=== PATIENT | female | born 1940 | race Caucasian/White ===

== ENCOUNTER 2016-11-16 00:15 | Emergency (ER) | payer OTHER ==
[2016-11-16] MEDS ORDERED: SODIUM CHLORIDE 0.9% (FLUSH) 10 ML SYG IV PRN (00:21)
[2016-11-16] MEDS ORDERED: ASPIRIN TABLET 325 MG TAB PO ONE (00:21)
[2016-11-16] MEDS ORDERED: ONDANSETRON INJ 4 MG/2 ML VIAL IV ONE (00:21)
[2016-11-16] MEDS ORDERED: NITROGLYCERIN 0.4 MG 25 EA TAB SL ONE (00:21)
[2016-11-16] MEDS ORDERED: SODIUM CHLORIDE 0.9% 100ML 100 ML IVPB ONE (00:33)
[2016-11-16] MEDS ORDERED: diltiaZEM DRIP 125 MG/25 ML VIAL IVPB ONE (00:34)
--- NOTE | 2016-11-16 00:44 | RAD ---
EXAM DESCRIPTION: X-RAY CHEST- One View CLINICAL HISTORY: Chest pain COMPARISON: None TECHNIQUE: Single view of the chest. FINDINGS: There are no discrete air space infiltrates, pneumothoraces or pleural effusions. The pulmonary vascularity is normal. The cardiomediastinal silhouette is unremarkable. IMPRESSION: There are no acute lung parenchymal findings. Electronically signed by: Arthur Aburto MD 11/16/2016 00:41
[2016-11-16] MEDS: ADENOSINE INJ 6 MG/2 ML SYG IV ONE (00:56)
[2016-11-16] MEDS ORDERED: diltiaZEM DRIP 125 MG in SODIUM CHLORIDE 0.9% 100ML 100 ML IVPB SCH (01:00)
--- NOTE | 2016-11-16 01:04 | ED.PDOC ---
History of Present Illness - General Chief Complaint: Cardiovascular Problem Stated Complaint: chest pressure Time Seen by Provider: 11/16/16 00:19 Source: patient Exam Limitations: no limitations - History of Present Illness Initial Comments: Patient stated she woke up from her sleep tonight when she sudden onset of chest pressure traveled to her chin,denies sob,chest pain n/v,diaphoreses. Timing/Duration: 1 hour Severity: moderate Location: central Activities at Onset: sleep Prior Chest Pain/Cardiac Workup: no prior chest pain, no prior cardiac workup Improving Factors: nothing Worsening Factors: nothing Nitro Today/Relief: no nitro taken today Aspirin Treatment Today: no aspirin today Associated Symptoms: denies symptoms Allergies/Adverse Reactions: Allergies NO KNOWN ALLERGY Allergy (Verified 11/16/16 00:20) Review of Systems - Review of Systems Constitutional: States: no symptoms reported EENTM: States: no symptoms reported Respiratory: States: no symptoms reported Cardiology: States: see HPI Gastrointestinal/Abdominal: States: no symptoms reported Genitourinary: States: no symptoms reported Musculoskeletal: States: no symptoms reported Skin: States: no symptoms reported Neurological: States: no symptoms reported Endocrine: States: no symptoms reported Hematologic/Lymphatic: States: no symptoms reported Past Medical History (General) - Patient Medical History Hx Hypertension: Yes Surgical History: other - ,left knee and ankle - Social History Hx Tobacco Use: No Hx Alcohol Use: No Hx Substance Use: No - Activities of Daily Living Patient Lives Alone: No - lives at home with Family Medical History - Family History Mother Living Status: Still Living Hx Family Hypertension: Yes Hx Family;Other: father had sudden cause unknown Physical Exam - Physical Exam General Appearance: Alert, Anxious, No apparent distress Eyes, Ears, Nose, Throat Exam: PERRL/EOMI, normal ENT inspection, TMs normal Neck: non-tender, full range of motion, supple, normal inspection, other - no thyromegaly Respiratory: chest non-tender, lungs clear, normal breath sounds Cardiovascular/Chest: normal peripheral pulses, no edema, no gallop, no murmur, tachycardia Gastrointestinal/Abdominal: normal bowel sounds, non tender, soft Extremity: normal range of motion, non-tender Neurologic: no motor/sensory deficits, alert, oriented x 3 Skin Exam: normal color, warm/dry, cyanosis Progress - Progress Progress: 11/16/16 02:40 D/W family ekg,blood works and diagnosis and agreed transfer to [facility]-patients choice - Results/Orders Results/Orders: 11/16/16 00:21 IV Care:Saline Lock per Protoc QSHIFT Telemetry .ONCE Sodium Chloride 0.9% (Flush) [Saline Flush Syringe] 10 ml IV PRN PRN EKG Stat Pulse Ox Stat Pulse Oximetry Assessment DAILY 11/16/16 01:00 [id number] DRIP [Cardizem Drip] 125 mg Sodium Chloride 0.9% 100Ml [NS (NACL 0.9 %) 100ml] 100 ml IVPB PRN Laboratory Results WBC 12.2 K/mm3 (4.8-10.8) H 11/16/16 00:20 RBC 4.65 M/mm3 (4.20-5.40) 11/16/16 00:20 Hgb 14.5 gm/dL (12.0-16.0) 11/16/16 00:20 Hct 43.1 % (36.0-47.0) 11/16/16 00:20 MCV 92.7 fl (81.0-99.0) 11/16/16 00:20 MCH 31.2 pg (27.0-31.0) H 11/16/16 00:20 MCHC 33.6 g/dL (33.0-37.0) 11/16/16 00:20 RDW 12.5 % (11.5-14.5) 11/16/16 00:20 Plt Count 303 K/mm3 (130-400) 11/16/16 00:20 MPV 7.4 fl (7.40-10.4) 11/16/16 00:20 Absolute Neuts (auto) 5.40 K/uL (1.8-6.8) 11/16/16 00:20 Absolute Lymphs (auto) 5.50 K/uL (1.0-3.4) H 11/16/16 00:20 Absolute Monos (auto) 0.80 K/uL (0.2-0.8) 11/16/16 00:20 Absolute Eos (auto) 0.30 K/uL (0.0-0.4) 11/16/16 00:20 Absolute Basos (auto) 0.10 K/uL (0.0-0.1) 11/16/16 00:20 Neutrophils % 44.8 % (42.0-78.0) 11/16/16 00:20 Lymphocytes % 45.5 % (20.0-50.0) 11/16/16 00:20 Monocytes % 6.4 % (2.0-9.0) 11/16/16 00:20 Eosinophils % 2.4 % (1.0-5.0) 11/16/16 00:20 Basophils % 0.9 % (0.0-2.0) 11/16/16 00:20 PT 10.7 SECONDS (9.4-12.5) 11/16/16 00:20 INR 0.940 11/16/16 00:20 PTT (SP) 33.1 SECONDS (25.1-36.5) 11/16/16 00:20 Sodium 136 mmol/L (135-145) 11/16/16 00:20 Potassium 3.5 mmol/L (3.6-5.0) L 11/16/16 00:20 Chloride 102 mmol/L (101-111) 11/16/16 00:20 Carbon Dioxide 26 mmol/L (21-31) 11/16/16 00:20 Anion Gap 11.5 (12-18) L 11/16/16 00:20 BUN 11 mg/dL (7-18) 11/16/16 00:20 Creatinine 0.66 mg/dL (0.6-1.3) 11/16/16 00:20 BUN/Creatinine Ratio 16.7 (10-20) 11/16/16 00:20 Random Glucose 134 mg/dL (70-105) H 11/16/16 00:20 Serum Osmolality 273.3 mOsm/L (275-295) L 11/16/16 00:20 Calcium 9.6 mg/dL (8.4-10.2) 11/16/16 00:20 Magnesium 2.1 mg/dL (1.8-2.5) 11/16/16 00:20 Creatine Kinase 122 IU/L (26-140) 11/16/16 00:20 CK-MB (CK-2) 2.8 ng/mL (0.0-4.4) 11/16/16 00:20 CK-MB (CK-2) % Not Reportable 11/16/16 00:20 Troponin I < 0.02 ng/mL (0.01-0.05) 11/16/16 00:20 B-Natriuretic Peptide 58.7 pg/ml (0-100) 11/16/16 00:20 TSH 7.72 uIU/mL (0.34-5.60) H 11/16/16 00:20 - EKG/XRAY/CT EKG: Atrial, Fibrillation - with rapid ventricular rate hr i60 XRAY: chest - no acute abnormality Departure - Departure Clinical Impression: Atrial fibrillation with rapid ventricular response Hypertension Qualifiers: Qualifier Code: (I10) Essential (primary) hypertension Time of Disposition: 02:39 - D/W Dr.Ruiz-[facility] Disposition: Transfer to Hospital Condition: Fair Departure Forms: ED Discharge - Pt. Copy, Patient Portal Self Enrollment Referrals: Aashish Patel MD [Primary Care Provider] - 1-2 Weeks
[2016-11-16] MEDS ORDERED: METOPROLOL SUCCINATE XL 25 MG TAB PO ONE (02:35)
[2016-11-16 02:47] VITALS: TEMP 98.2; O2SAT 95
[2016-11-16 03:41] VITALS: BP 144/79
== END 2016-11-16 03:15 | disposition short-term general hospital (02) ==
LOC: ER 00:15
DX: I48.91 Unspecified atrial fibrillation (principal); I10 Essential (primary) hypertension

== ENCOUNTER 2020-09-15 19:43 | Emergency (ER) | payer OTHER ==
[2020-09-15] MEDS ORDERED: MORPHINE SULFATE INJ 10 MG/ML VIAL IV ONE (20:00)
[2020-09-15] MEDS ORDERED: ONDANSETRON INJ 4 MG/2 ML VIAL IV ONE (20:00)
--- NOTE | 2020-09-15 20:03 | ED.PDOC ---
History of Present Illness - General Time Seen by Provider: 09/15/20 19:58 Information Source: patient, RN notes reviewed, Vital Signs reviewed Additional Information: 79-year-old female, presents to the ER with epigastric pain, patient woke up this morning with the pain and it got progressively worse throughout the day. Patient went to see her primary care physician, she was told that she had gastritis and she was told to go home, but the pain got worse, patient did have a gallbladder patient was uncomfortable denies any nausea vomiting diarrhea denies any dysuria This patient used to be on Nexium for years but she decided to stop taking it because she did not think she needed it anymore - History of Present Illness Abdominal Pain Onset Location: epigastric Quality: moderate Timing/Duration: other - since this morning Improving Factors: nothing Worsening Factors: nothing Associated Symptoms: denies symptoms Review of Systems - Review of Systems Constitutional: States: no symptoms reported EENTM: States: no symptoms reported Respiratory: States: no symptoms reported Cardiology: States: no symptoms reported Gastrointestinal/Abdominal: States: abdominal pain Genitourinary: States: no symptoms reported Musculoskeletal: States: no symptoms reported Skin: States: no symptoms reported Endocrine: States: no symptoms reported Hematologic/Lymphatic: States: no symptoms reported Past Medical History (General) - Patient Medical History Hx Seizures: No Hx Stroke: No Hx Dementia: No Hx Asthma: No Hx of COPD: No Hx Cardiac Disorders: No Hx Congestive Heart Failure: No Hx Pacemaker: No Hx Hypertension: Yes Hx Thyroid Disease: No Hx Diabetes: No Hx Gastroesophageal Reflux: No Hx Renal Disease: No Hx Cancer: No Hx of HIV: No Hx Hepatitis C: No Hx MRSA: No - Vaccination History Hx Tetanus, Diphtheria Vaccination: No Hx Influenza Vaccination: Yes Hx Pneumococcal Vaccination: Yes - Social History Hx Tobacco Use: No Hx Chewing Tobacco Use: No Hx Alcohol Use: No Hx Substance Use: No Hx Physical Abuse: No Hx Emotional Abuse: No Hx Suspected Abuse: No - Female History Patient : No Family Medical History - Family History Mother Living Status: Still Living Hx Family Hypertension: Yes Hx Family;Other: father had sudden cause unknown Physical Exam - Physical Exam General Appearance: Alert, Well Developed, Well Groomed, Well Hydrated, Well Nourished Eyes, Ears, Nose, Throat Exam: PERRL/EOMI, normal ENT inspection Neck: non-tender, full range of motion, supple Respiratory: chest non-tender, lungs clear, normal breath sounds, no respiratory distress, no accessory muscle use Cardiovascular/Chest: normal peripheral pulses, regular rate, rhythm, no edema, no gallop, no JVD, no murmur Gastrointestinal/Abdominal: tenderness - epigastric no guarding no distention no acute abdomen Pelvic Exam: normal external exam Back Exam: normal inspection, no CVA tenderness, no vertebral tenderness Extremity: normal range of motion, non-tender, normal inspection, no pedal edema, no calf tenderness, normal capillary refill Neurologic: take away man II-XII nml as tested, no motor/sensory deficits, alert, normal mood/affect, oriented x 3 Skin Exam: normal color Lymphatic: no adenopathy Progress - Progress Progress: Patient will be able to make midepigastric and right upper quadrant pain, patient said that she does have a history of reflux, and she has stopped taking her Nexium because she needs any more Lithiasis, start ordering ultrasound basic lab work I gave the patient. Patient ultrasound did show evidence of cholelithiasis with diabetes of fibrocystic fluid or cholecystitis, patient lipase was within normal limits normal bilirubin patient did have some evidence of leukocytosis but no evidence of right lower quadrant pain, patient returned home with tramadol for pain and instructions to follow-up with general surgeon for evaluation of cholelithiasis. To the ER immediately if there is any severe right lower quadrant pain back pain diarrhea bloody stools unwanted weight of decreased oral intake unable to monitor fluids down blood in the urine blood in the stools patient needs to av oid eating will be high fat content 09/15/20 21:41 Departure - Departure Clinical Impression: Cholelithiasis Qualifiers: Cholelithiasis location: gallbladder Cholecystitis presence: without cholecystitis Biliary obstruction: without biliary obstruction Qualified Code(s): K80.20 - Calculus of gallbladder without cholecystitis without obstruction Disposition: Discharge to Home or Self Care Condition: Fair Diet: full liquid diet, other - avoid food with High fat content Referrals: Aashish Patel MD [Primary Care Provider] - 1-2 Weeks Gerard Moe MD [Active Staff] - 1-2 Weeks Aashish Chester MD [Active Staff] - 1-2 Weeks Prescriptions: Tramadol HCl 50 mg PO Q6HR #20 tab Home Medications: Ambulatory Orders Aspirin [Aspirin Adult Low Dose] 81 mg PO DAILY 12/04/19 B-Complex Vitamins [Vitamin B Complex] 1 tab PO DAILY 12/04/19 Beet Root 1 tablet PO DAILY 12/04/19 Garlic 1 tablet PO DAILY 12/04/19 [place]-3 Fatty Acids [Fish Oil] 1 cap PO DAILY 12/04/19 Telmisartan [Micardis] 40 mg PO DAILY 12/04/19 Vitamin D 1 tablet PO DAILY 12/04/19 Tramadol HCl 50 mg PO Q6HR #20 tab 09/15/20 Additional Instructions: To the ER immediately if there is any severe right lower quadrant pain back pain diarrhea bloody stools unwanted weight of decreased oral intake unable to monitor fluids down blood in the urine blood in the stools patient needs to avoid eating will be high fat content
--- NOTE | 2020-09-15 21:18 | US ---
EXAM DESCRIPTION: US Abdomen Limited CLINICAL HISTORY: right upper quadrant pain TECHNIQUE: Real-time and davila scale sonographic imaging of the right upper quadrant was performed. COMPARISON: None available for comparison FINDINGS: Liver: 15.7 cm. Normal in echotexture. No focal mass. Gallbladder: Gallstones within a distended gallbladder. No gallbladder wall thickening or pericholecystic fluid. histotechnologist supervisor noted a sonographic positive Turner's. Common bile duct: 5 mm in diameter. There is no intrahepatic biliary ductal dilatation. Pancreas: Unremarkable as visualized Right kidney: 9.2 x 4 x 5.4 cm. No focal mass, calculus or hydronephrosis. IVC: Unremarkable as visualized Free fluid: None IMPRESSION: Cholelithiasis. The gallbladder is distended. No gallbladder wall thickening or pericholecystic fluid. histotechnologist supervisor noted a sonographic positive Turner's sign. Electronically signed by: Migue Carroll MD 09/15/2020 9:17 PM ADVERTISING MANAGER
[2020-09-15 22:19] VITALS: O2SAT 96
[2020-09-15 22:21] VITALS: BP 162/83; TEMP 97.5
== END 2020-09-15 22:03 | disposition home or self-care (01) ==
LOC: ER 19:43
DX: K80.20 Calculus of gallbladder without cholecystitis without obstruction (principal); I10 Essential (primary) hypertension
CPT/HCPCS: 36415; 76775; 80053; 84484; 85025; 93005; J2270; J2405

== ENCOUNTER 2020-09-16 19:41 | Observation (INO) | payer OTHER ==
[~2020-09-16 19:41] MED LIST: DEXAMETHASONE INJ 10 MG/ML VIAL IV ONE; LIDOCAINE 1% 10 ML VIAL INJ ONE; MAGNESIUM SULFATE INJ 1 GM/2 ML VIAL IVPB ONE; METOCLOPRAMIDE HCL INJ 10 MG/2 ML VIAL IV ONE; PROPOFOL 200 MG/20 ML VIAL IV ONE; SODIUM CHLORIDE 0.9% 50 ML VIAL INJ ONE
[2020-09-16] MEDS ORDERED: ONDANSETRON INJ 4 MG/2 ML VIAL IV ONE (19:56)
[2020-09-16] MEDS ORDERED: fentaNYL CITRATE INJ 50 MCG/ML 2 ML AMP IV ONE (19:56)
--- NOTE | 2020-09-16 20:04 | ED.PDOC ---
History of Present Illness - General Chief Complaint: Abdominal Pain Time Seen by Provider: 09/16/20 19:46 Information Source: patient, RN notes reviewed, Vital Signs reviewed Exam Limitations: no limitations - History of Present Illness Initial Comments: 79 yo F comes in with worsening abdominal pain. One day ago started have upper abdominal pain associated with n/v. had a RUQ US which showed gallstones without gbw thickening or cbd dilation. She was schedule to see surgery in 3 days, but pain got significantly worse so came in for evaluation. + N/V. no diarrhea. no fevers. no cp, sob. last ate 3 PM, 4 wheat crackers. Review of Systems - Review of Systems Constitutional: Denies: chills, fever EENTM: Denies: blurred vision, ear discharge, mouth swelling Respiratory: Denies: cough, short of breath Cardiology: Denies: chest pain, palpitations Gastrointestinal/Abdominal: States: abdominal pain, nausea, vomiting. Denies: diarrhea Genitourinary: Denies: frequency, hematuria Musculoskeletal: Denies: back pain, joint swelling, muscle stiffness Neurological: Denies: headache, numbness, paresthesia Endocrine: Denies: unexplained weight gain, unexplained weight loss Hematologic/Lymphatic: Denies: blood clots, easy bleeding, easy bruising Past Medical History (General) - Patient Medical History Hx Seizures: No Hx Stroke: No Hx Dementia: No Hx Asthma: No Hx of COPD: No Hx Cardiac Disorders: No Hx Congestive Heart Failure: No Hx Pacemaker: No Hx Hypertension: Yes Hx Thyroid Disease: No Hx Diabetes: No Hx Gastroesophageal Reflux: No Hx Renal Disease: No Hx Cancer: No Hx of HIV: No Hx Hepatitis C: No Hx MRSA: No - Vaccination History Hx Tetanus, Diphtheria Vaccination: No Hx Influenza Vaccination: Yes Hx Pneumococcal Vaccination: Yes - Social History Hx Tobacco Use: No Hx Chewing Tobacco Use: No Hx Alcohol Use: No Hx Substance Use: No Hx Depression: No Hx Physical Abuse: No Hx Emotional Abuse: No Hx Suspected Abuse: No - Female History Patient : No Family Medical History - Family History Mother Living Status: Still Living Hx Family Hypertension: Yes Hx Family;Other: father had sudden cause unknown Physical Exam - Physical Exam General Appearance: Alert, Comfortable, No apparent distress, Well Developed, Well Groomed, Well Hydrated, Well Nourished Eyes, Ears, Nose, Throat Exam: PERRL/EOMI, normal ENT inspection, TMs normal Neck: non-tender, full range of motion, supple, normal inspection Respiratory: chest non-tender, lungs clear, normal breath sounds, no respiratory distress, no accessory muscle use Cardiovascular/Chest: normal peripheral pulses, regular rate, rhythm, no edema, no gallop, no JVD, no murmur Peripheral Pulses: 2+ Gastrointestinal/Abdominal: normal bowel sounds, soft, no organomegaly, other - + muprhys, vol gaurding. Rectal Exam: deferred Back Exam: normal inspection, no CVA tenderness, no vertebral tenderness Extremity: normal range of motion, non-tender, normal inspection, no pedal edema, no calf tenderness, normal capillary refill Neurologic: police surgeon II-XII nml as tested, no motor/sensory deficits, alert, normal mood/affect, oriented x 3 Skin Exam: normal color, warm/dry Progress - Progress Progress: 09/16/20 21:51 bedside US shows GBW thickening. The data reviewed when caring for this patient included: nurse notes, prior records, etc. The history and assessments from nurses notes were reviewed and considered, and the patient's home medication list was also reviewed and considered. My assessment and the results of testing completed here in the ED were discussed with the patient/family. All questions were answered, and they express understanding of my assessment and the plan. patient received fentanyl, toradol, flagyl and ceftriaxone. Zofran for nausea. Pain improved. NPO. accepted for admission. Florina Beasley DO #[id number] - Results/Orders Results/Orders: 09/16/20 20:00 Hold Metformin x 48Hrs [id number] 09/16/20 20:43 BLOOD CULTURE Stat 09/16/20 21:00 EKG STAT 09/16/20 21:31 UA [URINALYSIS] Stat Laboratory Results WBC 16.6 K/mm3 (4.8-10.8) H 09/16/20 20:17 RBC 4.04 M/mm3 (4.20-5.40) L 09/16/20 20:17 Hgb 12.6 gm/dL (12.0-16.0) 09/16/20 20:17 Hct 37.0 % (36.0-47.0) 09/16/20 20:17 MCV 91.6 fl (81.0-99.0) 09/16/20 20:17 MCH 31.3 pg (27.0-31.0) H 09/16/20 20:17 MCHC 34.2 g/dL (33.0-37.0) 09/16/20 20:17 RDW 12.2 % (11.5-14.5) 09/16/20 20:17 Plt Count 292 K/mm3 (130-400) 09/16/20 20: MPV 7.0 fl (7.40-10.4) L 09/16/20 20:17 Absolute Neuts (auto) 12.80 K/uL (1.8-6.8) H 09/16/20 20: Absolute Lymphs (auto) 1.90 K/uL (1.0-3.4) 09/16/20 20: Absolute Monos (auto) 1.70 K/uL (0.2-0.8) H 09/16/20 20:17 Absolute Eos (auto) 0.10 K/uL (0.0-0.4) 09/16/20 20: Absolute Basos (auto) 0.10 K/uL (0.0-0.1) 09/16/20 20:17 Neutrophils % 77.2 % (42.0-78.0) 09/16/20 20: Lymphocytes % 11.2 % (20.0-50.0) L 09/16/20 20: Monocytes % 10.0 % (2.0-9.0) H 09/16/20 20: Eosinophils % 0.8 % (1.0-5.0) L 09/16/20 20: Basophils % 0.8 % (0.0-2.0) 09/16/20 20:17 Sodium 123 mmol/L (135-145) L 09/16/20 20:17 Potassium 4.1 mmol/L (3.6-5.0) 09/16/20 20:17 Chloride 90 mmol/L (101-111) L 09/16/20 20:17 Carbon Dioxide 23 mmol/L (21-31) 09/16/20 20:17 Anion Gap 14.1 (12-18) 09/16/20 20:17 BUN 11 mg/dL (7-18) 09/16/20 20:17 Creatinine 0.60 mg/dL (0.6-1.3) 09/16/20 20:17 BUN/Creatinine Ratio 18.3 (10-20) 09/16/20 20:17 Random Glucose 119 mg/dL (70-105) H 09/16/20 20:17 Serum Osmolality 248.3 mOsm/L (275-295) L* 09/16/20 20:17 Calcium 8.2 mg/dL (8.4-10.2) L 09/16/20 20:17 Total Bilirubin 0.9 mg/dL (0.2-1.0) 09/16/20 20:17 Direct Bilirubin 0.2 mg/dL (0-0.2) 09/16/20 20:17 Indirect Bilirubin 0.7 mg/dL (0.2-0.8) 09/16/20 20:17 AST 68 IU/L (10-42) H D 09/16/20 20:17 ALT 63 IU/L (10-60) H D 09/16/20 20:17 Alkaline Phosphatase 45 IU/L (42-121) 09/16/20 20:17 Serum Total Protein 6.8 gm/dL (6.4-8.2) 09/16/20 20:17 Albumin 3.8 g/dl (3.2-5.5) 09/16/20 20:17 Lipase 29 U/L (22-51) 09/16/20 20:17 - EKG/XRAY/CT EKG: Sinus Comments: NSR, normal intervals, no acute ischemia. CT: abd/pelvis shows GBW thickening, perichol fluid. pending radiology read., - Consult/PCP Time Called: 20:33 Consult/PCP: Dr. Moe Departure - Departure Clinical Impression: Hyponatremia, Cholecystitis Time of Disposition: 21:21 Disposition: Admit Patient Condition: Fair Departure Forms: ED Discharge - Pt. Copy, Patient Portal Self Enrollment Instructions: DI for Abdominal Pain-Adult Diet: other - npo Home Medications: Ambulatory Orders Aspirin [Aspirin Adult Low Dose] 81 mg PO DAILY 12/04/19 B-Complex Vitamins [Vitamin B Complex] 1 tab PO DAILY 12/04/19 Beet Root 1 tablet PO DAILY 12/04/19 Garlic 1 tablet PO DAILY 12/04/19 [place]-3 Fatty Acids [Fish Oil] 1 cap PO DAILY 12/04/19 Telmisartan [Micardis] 40 mg PO DAILY 12/04/19 Vitamin D 1 tablet PO DAILY 12/04/19 Tramadol HCl 50 mg PO Q6HR #20 tab 09/15/20
[2020-09-16] MEDS ORDERED: cefTRIAXone SODIUM 1 GM in SODIUM CHL 0.9% 50ML MIN-BAG+ 50 ML IVPB ONE (20:28)
[2020-09-16] MEDS ORDERED: metroNIDAZOLE IV PREMIX 500MG 500 MG in PREMIX BAG 1 BAG IVPB ONE (20:30)
[2020-09-16] MEDS ORDERED: SODIUM CHLORIDE 0.9% 1000ML 1,000 ML IVS ONE (20:37)
[2020-09-16] MEDS ORDERED: KETOROLAC TROMETHAMINE INJ 30 MG/ML VIAL IV ONE (20:53)
--- NOTE | 2020-09-16 21:39 | CT ---
EXAM: Abdomen/Pelvis w/Contrast CLINICAL INDICATION: Abdominal pain. COMPARISON: There is no previous study for comparison. TECHNIQUE: The CT scan was done using contiguous axial 5 mm postcontrast sections through the abdomen and pelvis including IV contrast. This exam was performed according to our departmental dose-optimization program, which includes automated exposure control, adjustment of the mA and/or kV according to patient size and/or use of iterative reconstruction technique. FINDINGS: The visualized lung bases reveal mild areas of subsegmental atelectasis and trace right pleural effusion. The liver is unremarkable. There is a trace amount of free fluid overlying the liver. The gallbladder appears distended with a thickened and inflamed appearing wall. The kidneys, adrenal glands, spleen, and pancreas are unremarkable. 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 The aorta contains atherosclerotic calcifications without evidence of aneurysm. There are no dilated loops of small bowel, free air, free fluid, or abscess. Diverticulosis of the colon is noted without findings of acute diverticulitis. The appendix is normal. The uterus is surgically absent. IMPRESSION: 1. Distended gallbladder which has an inflamed thick-walled appearance raising concern for cholecystitis. Correlation with gallbladder ultrasound is recommended. 2. Diverticulosis. Electronically signed by: Danny Valencia MD 09/16/2020 9:38 PM LIGHT BULB REPLACER
[2020-09-16] MEDS ORDERED: MAGNESIUM OXIDE 400 MG TAB ONE (22:11)
--- NOTE | 2020-09-17 00:03 | HP ---
SUPERVISING PHYSICIAN: Aashish Patel MD CHIEF COMPLAINT: Abdominal pain. HISTORY OF PRESENT ILLNESS: This is a 79-year-old female patient who presented to the Emergency Room with worsening abdominal pain. She had had pain the previous day and had been at the hospital and had a right upper quadrant ultrasound which showed gallstones without thickening or common bile duct dilation. She had an appointment to see Dr. Moe in three days, but her pain got significantly worse and she came to the Emergency Room for evaluation. She had nausea and vomiting, but no diarrhea, no fever. Her initial vital signs were temperature 97.6, heart rate 105, blood pressure 148/75, respiratory rate 18, O2 saturation 96% on room air. Her lab studies showed sodium 123, potassium 4.1, chloride 90, BUN 11, creatinine 0.60. Glucose 119, serum osmolality 248.3, calcium 8.2, total bilirubin 0.9, AST 68, ALT 63, lipase 29. Urinalysis was basically unremarkable. Blood cultures were drawn. She was given some fentanyl for pain as well as some Rocephin and Flagyl. Dr. Moe was called from the Emergency Room physician and after reviewing her history and chart, he said he would see the patient in consultation the following day. She also received antiemetics. PAST MEDICAL HISTORY: 1. Atrial fibrillation, one episode in 2017, presently only on an aspirin. 2. Hyperlipidemia. 3. Hypertension. 4. Diverticulosis. 5. Chronic midback pain. PAST SURGICAL HISTORY: 1. Left ankle and right patella fracture repair. 2. Hysterectomy. OUTPATIENT MEDICATIONS: Per the EMR. ALLERGIES: SULFA. FAMILY HISTORY: Positive for coronary artery disease and Parkinson's disease. SOCIAL HISTORY: She is retired. She denied any tobacco, ETOH or illicit drug use. REVIEW OF SYSTEMS: GENERAL: Negative for fever, fatigue or weight changes. HEENT: Negative for sinus symptoms, ear pain, vision changes or sore throat. RESPIRATORY: Negative for wheezing, coughing or shortness of breath. CARDIAC: Negative for chest pain, palpitations or tachycardia. GASTROINTESTINAL: As per history of present illness. GENITOURINARY: Negative for hematuria, dysuria or polyuria. SKIN: Negative for lesions or rashes. NEUROLOGIC: Negative for headache, weakness or seizures. PHYSICAL EXAMINATION: VITAL SIGNS: Temperature 98.5, heart rate 88, blood pressure 116/65, respiratory rate 16, O2 saturation 93% on room air. GENERAL: This is a 79-year-old female patient who is lying in her hospital bed. She looks to be in mild pain. HEENT: Normocephalic, atraumatic. Pupils are equal and reactive. Oropharynx is clear. NECK: Supple without mass. RESPIRATORY: Essentially clear to auscultation bilaterally. CARDIOVASCULAR: Regular rate and rhythm. GASTROINTESTINAL: Abdomen is soft, nondistended. She does have some tenderness to that right upper quadrant with a positive Turner's. Bowel sounds are positive. EXTREMITIES: No cyanosis, clubbing or edema. BACK: Deferred. NEUROLOGIC: Awake, alert and oriented times three. Cranial nerves II-XII are grossly intact as tested. SKIN: [place], warm and dry. LABORATORY: Followup labs this morning show WBCs improved to 12,700 with hemoglobin 11.4, hematocrit 33.8. Sodium 124, potassium 3.5, chloride 93, BUN 10, creatinine 0.58. Serum osmolality 249.7, calcium 7.7. AST 58, amylase 32, lipase 25. MICROBIOLOGY: Preliminary blood cultures show no growth. RADIOLOGY: Abdomen and pelvis CT shows 1) Distended gallbladder that has an inflamed, thick-walled appearance raising concerns for cholecystitis. Correlation with gallbladder ultrasound is recommended. 2) Diverticulosis. ECHOCARDIOGRAM: 1) Normal LV size and systolic function with estimated EF of about 55% and no regional wall motion abnormalities. 2) Normal right ventricular size and function. 3) Trace mitral and tricuspid valve regurgitation. 4) Normal pericardium. IMPRESSION: 1. Cholecystitis with right upper quadrant abdominal pain. 2. Hyponatremia. 3. Leukocytosis. 4. Gastroesophageal reflux disease. 5. Hypertension. 6. History of atrial fibrillation, presently on no anticoagulants but an aspirin. PLAN: The patient was admitted to the hospital in stable condition. Dr. Chester for surgical consultation. I have continued her on Flagyl and Levaquin. He is taking her to surgery this morning for cholecystectomy. She has been placed on fluid restrictions and given IV fluids. She has also been NPO. She is on Protonix for ulcer prophylaxis. I have held on Lovenox until after her surgery. Her home medications will be restarted as soon as they are verified. We will follow Dr. Chester's recommendations as far as operative issues are concerned. We will continue to monitor the patient closely and follow as needed. #[id number] [facility]
[2020-09-17] MEDS ORDERED: SODIUM CHLORIDE 0.9% (FLUSH) 10 ML SYG IV PRN (00:17)
[2020-09-17] MEDS ORDERED: CHLORHEXIDINE GLUCONATE 4 % 15 ML UD TOP ONE (00:28)
[2020-09-17] MEDS ORDERED: ONDANSETRON INJ 4 MG/2 ML VIAL IV PRN (00:29)
[2020-09-17] MEDS ORDERED: IV SET AND CAP CHANGE INJ INJ SCH (00:30)
[2020-09-17] MEDS: DEX 5% W/NACL 0.9% 1000ML 1,000 ML IVS PRN ×2 (01:26→11:04)
[2020-09-17] MEDS: PANTOPRAZOLE SODIUM IV 40 MG VIAL IV SCH (06:06)
[2020-09-17] MEDS ORDERED: POTASSIUM CHLORIDE 20 MEQ TAB PO ONE (07:10)
[2020-09-17] MEDS ORDERED: levoFLOXacin 500MG IV 100 ML IVPB ONE (07:29)
[2020-09-17] MEDS: levoFLOXacin 500MG IV 500 MG in PREMIX BAG 1 BAG IVPB SCH (07:33)
[2020-09-17] MEDS ORDERED: SUGAMMADEX SODIUM 200 MG/2 ML VIAL IV ONE (11:43)
[2020-09-17] MEDS ORDERED: fentaNYL CITRATE INJ 50 MCG/ML 2 ML AMP ONE ×3 (11:43→19:58)
[2020-09-17] MEDS ORDERED: ROCURONIUM BROMIDE 10 MG/ML VIAL ONE (11:44)
[2020-09-17] MEDS ORDERED: BUPIVACAINE 0.5% W/EPI 30 ML VIAL INJ ONE ×2 (11:50→11:58)
[2020-09-17] MEDS ORDERED: DEX 5% W/NACL 0.9% 1000ML 1,000 ML IVS ONE (13:14)
--- NOTE | 2020-09-17 13:42 | OP ---
DATE OF PROCEDURE: 09/17/20 PREOPERATIVE DIAGNOSIS: 1. Acute cholecystitis. POSTOPERATIVE DIAGNOSIS: 1. Acute cholecystitis. PROCEDURE: 1. Laparoscopic cholecystectomy. SURGEON: Aashish Chester MD. ANESTHESIA: General. FINDINGS: Acutely inflamed gallbladder with normal anatomy. COMPLICATIONS: None. ESTIMATED BLOOD LOSS: 10 to 15 cc. SPECIMEN: Gallbladder. PLAN: Admitted. INDICATION: The patient was admitted through the Emergency Room with a recent history of escalating symptoms of cholecystitis. Films confirm the same. Her exam was consistent with acute cholecystitis. She was consented for removal of her gallbladder. PROCEDURE: The patient was brought the Operating Suite in supine position. General anesthesia was induced. The patient was prepped and draped in sterile fashion. Marcaine 0.5% with epinephrine was used at the incision sites. While maintaining upward traction, a dayna was made near the base of the umbilicus. Veress needle was introduced. There was free flow of fluid into the peritoneal cavity which was insufflated to an appropriate level with CO2 gas. The 5 mm trocar was placed followed by the camera. There was no evidence of bleeding or bowel injury. The patient was positioned and subxiphoid and lateral ports were placed under direct visualization without difficulty. The gallbladder fundus was identified. It was very tense. We decompressed the gallbladder and aspirated any leaked bile. There was no purulence. The gallbladder was retracted superiorly and laterally. The infundibulum was grasped. Initially, the anatomy was not visualized due to extreme inflammation, but we carefully dissected all this away until the duct and artery were clearly visualized through the triangle of [place]. Three clips were placed on the distal duct and one proximal. The duct was ligated. The artery was triply ligated, as were a few small additional branches that could have small vessels. The gallbladder was then dissected off the fossa in total and removed in the EndoCatch bag. It was very inflamed, so there was oozing from the fossa. This was controlled with cautery. The clips were intact. There was no bleeding or bile leakage. We irrigated the area until all aspirate was clear. There was no evidence of ongoing significant oozing. The subxiphoid fascia was then closed with 0 Vicryl using the suture passer. It was airtight and non-bleeding. The remaining trocars were removed. There was no bleeding from the trocar sites. The wounds were irrigated and closed with Monocryl. Dressings were applied. The patient was awakened and taken to Recovery in stable condition to be admitted. #[id number] [facility]
[2020-09-17] MEDS ORDERED: PHENOL THROAT SPRAY 180 ML BTTL MT PRN (14:10)
[2020-09-17] MEDS ORDERED: PHENOL THROAT SPRAY 180 ML BTTL MT ONE (14:23)
[2020-09-17] MEDS: fentaNYL CITRATE INJ 50 MCG/ML 2 ML AMP IV PRN ×2 (15:30→20:02)
[2020-09-17] MEDS ORDERED: KCL 20MEQ/D5 1/2NS 1,000 ML IVS PRN (17:09)
[2020-09-17] MEDS ORDERED: traMADol HCL 50 MG TAB PO PRN ×2 (17:13→22:51)
[2020-09-17] MEDS ORDERED: TEMAZEPAM 15 MG CAP PO PRN (17:47)
[2020-09-17] MEDS ORDERED: traMADol HCL 50 MG TAB ONE ×2 (18:16→22:56)
[2020-09-17] MEDS ORDERED: SODIUM CHLORIDE 0.9% (FLUSH) 10 ML SYG ONE (19:58)
[2020-09-17] MEDS ORDERED: PANTOPRAZOLE SODIUM IV 40 MG VIAL ONE (19:59)
[2020-09-17] MEDS ORDERED: TEMAZEPAM 15 MG CAP ONE (22:57)
[2020-09-18] MEDS ORDERED: ACETAMINOPHEN 325 MG TAB ONE ×2 (04:27→09:07)
[2020-09-18] MEDS: ACETAMINOPHEN 325 MG TAB PO PRN ×2 (04:31→09:16)
[2020-09-18] MEDS: PANTOPRAZOLE SODIUM IV 40 MG VIAL IV SCH (06:28)
[2020-09-18] MEDS ORDERED: LOSARTAN POTASSIUM 25 MG TAB ONE (08:02)
[2020-09-18] MEDS ORDERED: ENOXAPARIN SODIUM 40 MG/0.4 ML SYG SUBCU ONE (08:04)
[2020-09-18] MEDS ORDERED: levoFLOXacin 500MG IV 100 ML IVPB ONE (08:04)
[2020-09-18] MEDS ORDERED: ENOXAPARIN SODIUM 40 MG/0.4 ML SYG SUBCU SCH (09:00)
[2020-09-18] MEDS ORDERED: LOSARTAN POTASSIUM 25 MG TAB PO SCH (09:00)
[2020-09-18] MEDS: levoFLOXacin 500MG IV 500 MG in PREMIX BAG 1 BAG IVPB SCH (09:17)
[2020-09-18 12:11] VITALS: BP 154/64; TEMP 97.7; O2SAT 95
--- NOTE | 2020-09-19 13:27 | DS ---
SUPERVISING PHYSICIAN: Aashish Patel MD ADMISSION DIAGNOSES: 1. Cholecystitis with right upper quadrant abdominal pain. 2. Hyponatremia. 3. Leukocytosis. 4. Gastroesophageal reflux disease. 5. Hypertension. 6. History of atrial fibrillation, presently on no anticoagulants but an aspirin. DISCHARGE DIAGNOSES: 1. Acute cholecystitis status post laparoscopic cholecystectomy. 2. Hyponatremia, resolved.. 3. Leukocytosis secondary to #1 status post laparoscope cholecystectomy. 4. Gastroesophageal reflux disease. 5. Hypertension. 6. Chronic atrial fibrillation, now on aspirin. 7. Elevated Transaminase secondary to acute cholecystitis status post laparoscopic cholecystectomy. REASON FOR HOSPITALIZATION: This is a 79-year-old female patient who presented to the Emergency Room with worsening abdominal pain. She had had pain the previous day and had been at the hospital and had a right upper quadrant ultrasound which showed gallstones without thickening or common bile duct dilation. She had an appointment to see Dr. Moe in three days, but her pain got significantly worse and she came to the Emergency Room for evaluation. She had nausea and vomiting, but no diarrhea, no fever. Her initial vital signs were temperature 97.6, heart rate 105, blood pressure 148/75, respiratory rate 18, O2 saturation 96% on room air. Her lab studies showed sodium 123, potassium 4.1, chloride 90, BUN 11, creatinine 0.60. Glucose 119, serum osmolality 248.3, calcium 8.2, total bilirubin 0.9, AST 68, ALT 63, lipase 29. Urinalysis was basically unremarkable. Blood cultures were drawn. She was given some fentanyl for pain as well as some Rocephin and Flagyl. Dr. Moe was called from the Emergency Room physician and after reviewing her history and chart, he said he would see the patient in consultation the following day. She also received antiemetics. PROCEDURES: 1. Laparoscopic cholecystectomy by Dr. Chester. Please see his operative notes for details. LABORATORY STUDIES: Sodium on discharge 134, potassium 3.9, creatinine 0.5. Liver functions were showing AST of 66, ALT 81, white count 16,100, hemoglobin 11.3, hematocrit 32.6, differential showing a left shift. RADIOLOGY: Abdominal/pelvic CT with contrast per radiology interpretation showed systemic gallbladder which was inflamed, thick-walled appearance raising concerns for cholecystitis. Also noted is diverticulosis. HOSPITAL COURSE: Ms. Buckley was admitted on 09/17/20, taken to surgery on same-day admission for laparoscopic cholecystectomy. She had no intraoperative complications. Postoperatively, she was doing well. She was tolerating a low- fat diet. She was ambulating without any complications. She had adequate intake and was not showing any complications, had good pain control and was seen by Dr. Chester and found to be clinically stable enough to discharge for outpatient treatment. PLAN: The patient was discharged on 09/18/[address] Chester in 2 weeks. She is to follow a low-cholesterol, low-fat diet. She was to increase activities as tolerated except no lifting, pulling or straining until cleared by Dr. Chester. She is to take her medications as directed and was given a right for Tylenol No. 3, one every 4 hours as needed, #15, no refills, for pain control and to call Dr. Chester for any questions or concerns. She is to return to the Emergency Room if she had any concerning symptoms. DISPOSITION: The patient is discharged to home. CONDITION ON DISCHARGE: Stable and improved. #[id number] [facility]
== END 2020-09-18 11:30 | disposition home or self-care (01) ==
LOC: ER 19:41 → OBSVTOIN 09-17 00:01 → MS 09-17 00:01 → INTOOBSV 09-17 00:01
PROVIDERS: ADMIT Nurse Practitioner Acute Care; ATTEND Nurse Practitioner Family
DX: K80.00 Calculus of gallbladder with acute cholecystitis without obstruction (principal); K82.A1 Gangrene of gallbladder in cholecystitis; E87.1 Hypo-osmolality and hyponatremia; R11.2 Nausea with vomiting, unspecified; K21.9 Gastro-esophageal reflux disease without esophagitis; I10 Essential (primary) hypertension; I48.20 Chronic atrial fibrillation, unspecified; E66.9 Obesity, unspecified; E78.5 Hyperlipidemia, unspecified; G89.29 Other chronic pain; I08.1 Rheumatic disorders of both mitral and tricuspid valves; K57.30 Diverticulosis of large intestine without perforation or abscess without bleeding; Z68.25 Body mass index [BMI] 25.0-25.9, adult; Z79.82 Long term (current) use of aspirin; Z79.899 Other long term (current) drug therapy; Z88.2 Allergy status to sulfonamides
CPT/HCPCS: 96361; 96367 ×2; 96365; 96375 ×2; 96376 ×2; 96372; J0696; J3010 ×6; J1885; J1956 ×3; J2765; J3490 ×2; J2405; J7030; J1650; J3475; J1100; A4216 ×2; J7050; J7799 ×2; 80048; 80053 ×2; 36415 ×4; 82150; 81001; 80076; 85025 ×3; 87040 ×2; 83690 ×2; 83735; 88304; 74177; 94760 ×5; 99285; 93306; 93005; 47562; 00790